=== PATIENT | male | born 1960 | race Caucasian/White ===

== ENCOUNTER 2018-09-22 15:15 | Emergency (ER) | payer MEDICARE, OTHER ==
[~2018-09-22] VITALS: Ht 182.9 cm; Wt 159.7 kg
[~2018-09-22 15:15] MED LIST: ADVIL200 MG PO; ATROVENT HFA12.9 GM INH; AZITHROMYCIN250 MG PO; FLEXERIL5 MG PO; FLOMAX0.4 MG PO; HYDROCODON-ACE1 EAC8 PO; IPRAT-ALBUT 0.5-3 ML IH; LISINOPRIL10 MG; MECLIZINE HCL25 MG PO; MULTI VITAMIN1 EACH PO; NYSTATIN500000 UNI PO; POTASSIUM CHLO10 MEQ PO; PREVACID30 MG PO; QVAR7.3 G1 IH; QVAR7.3 G1 INH; SEREVENT DISKU1 PUFF IH; SINGULAIR10 MG PO; SPIRIVA18 MCG IH; TESTOSTERO100 MG/1 M IM; TOPROL XL50 MG PO; VENTOLIN HFA18 GM IH; ZESTRIL10 MG PO
--- OUTSIDE RECORDS SUMMARY | 2018-09-22 15:18 | XMS ---
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 E.Linnette VISIT COUNT (12 MO.) 1 CHRISTINE Christine TOTAL 1 NOTE: Visits indicate total known visits. ED/UCC VISIT TRACKING (12 MO.) 09/22/2018 15:16 [facility] [place] TYPE: Emergency COMPLAINT: - TESTICULAR PAIN/NON INJURY INPATIENT VISIT TRACKING (12 MO.) No inpatient visits to display in this time frame [email or web address]
== END 2018-09-22 18:05 | disposition home or self-care (01) ==
LOC: ED 15:15
DX: R10.31 Right lower quadrant pain (principal); J45.909 Unspecified asthma, uncomplicated; Z87.891 Personal history of nicotine dependence; Z79.899 Other long term (current) drug therapy
CPT/HCPCS: 74177; 80053; 81001; 83690; 85025; 99284-25

== ENCOUNTER 2024-01-15 17:17 | Emergency (ER) | payer MEDICARE, OTHER ==
[~2024-01-15] VITALS: Ht 182.9 cm; Wt 177.7 kg
[~2024-01-15 17:17] MED LIST changes: +CARTIA XT240 MG PO; +CLARITIN10 M2 PO; +COLCRYS0.6 MG PO; +DOXYCYCLINE HY100 MG PO; +ELIQUIS5 MG PO; +FUROSEMIDE20 MG PO; +METHIMAZOLE10 MG PO; +METOPROLOL SUC200 MG PO; +MONTELUKAST SOD10 MG PO; +PREDNISONE20 MG PO; +TIZANIDINE HCL4 M1 PO; +XOLAIR75 MG/0.5
--- OUTSIDE RECORDS SUMMARY | 2024-01-15 17:24 | XMS ---
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 - 2 Visits in 30 Days CARE PROVIDERS ELVIN HOLT [facility] 06/29/2020-Current PHONE: Unknown ZEHRA MOTA Physician 09/24/2018-Current PHONE: Unknown Morris has no Care Guidelines for this patient. Oscar VISIT COUNT (12 MO.) [address] [place] [address] Altagracia Stevens) [address] [place] [address] TOTAL 4 NOTE: Visits indicate total known visits. ED/UCC VISIT TRACKING (12 MO.) [facility]15[facility]2024 17:[facility] COMPLAINT: - FOOT PAIN 01/12/2024 14:12 [facility] [place] [facility] (Rodney Stevens) TYPE: Emergency DIAGNOSES: - Cellulitis of right lower limb - follow up for right foot - Wound Check 01/10/2024 16:47 [facility] [place] (Rodney Stevens) TYPE: Emergency DIAGNOSES: - Cellulitis of right lower limb - Contusion of right foot, initial encounter - custodial (current) use of anticoagulants - Foot Wound - rt foot swelling 12/01/2023 20:12 [facility] [place] [facility] (Rodney Stevens) TYPE: Emergency DIAGNOSES: - Acute and chronic respiratory failure with hypoxia - Acute combined systolic (congestive) and diastolic (congestive) heart failure - Acute pulmonary edema - Body mass index [BMI] 50.0-59.9, adult - Emphysema, unspecified - Fluid overload, unspecified - Morbid (severe) obesity due to excess calories - Leg Swelling - Shortness of Breath - SOB and leg swelling INPATIENT VISIT TRACKING (12 MO.) [facility]23 [facility] DIAGNOSES: - Acute and chronic respiratory failure with hypoxia - Acute combined systolic (congestive) and diastolic (congestive) heart failure - Acute on chronic diastolic (congestive) heart failure - Acute on chronic right heart failure - Acute pulmonary edema - Body mass index [BMI] 50.0-59.9, adult - Emphysema, unspecified - Fluid overload, unspecified - Morbid (severe) obesity due to excess calories - Pneumonia, unspecified organism [email or web address]
[2024-01-15] MEDS ORDERED: TRELEGY ELLIPT1 EACH IH (17:54)
[2024-01-15] MEDS ORDERED: CEPHALEXIN500 MG PO (17:54)
[2024-01-15] MEDS ORDERED: ALLOPURINOL300 MG PO (17:56)
[2024-01-15] MEDS ORDERED: VANCOMYCIN PER PHARMACY PROTOCOL IV ONE (18:00)
[2024-01-15] MEDS ORDERED: CEFTRIAXONE/SODIUM CHLORIDE 1 GM/100 ML PIGGYBACK IV ONE (18:00)
[2024-01-15] MEDS ORDERED: DIPHTH,PERTUSS(ACELL),TET VAC 0.5 ML SYRINGE IM ONE (18:15)
[2024-01-15 18:20] LABS: HEMATOCRIT 51.1 % (35.0-50.0)
[2024-01-15 18:23] LABS: BASOPHILS 0.2 % (0-2); EOSINOPHILS 2.2 % (0-6); HEMOGLOBIN 16.3 g/dL (12.0-18.0); LYMPHOCYTES 9.3 % (24-44); MCH 27.8 (27-36); MCHC 31.8 g/dl (30-36); MCV 87.4 fl (81-99); MONOCYTES 13.5 % (0-12); NEUTROPHILS 74.8 % (39-80); PLATELET COUNT 283 K/uL (140-440); RBC 5.85 M/ul (4.3-5.7)
[2024-01-15 18:36] LABS: ALBUMIN 2.9 g/dL (3.4-5.0); ALBUMIN/GLOBULIN RATIO 0.69 (1.1-2.4); ANION GAP 6.4 (7-21); BILIRUBIN, TOTAL 0.4 ng/dL (0.2-1.0); BUN/CREATININE RATIO 16.41 (6.0-28.6); CREATININE, SERUM 1.34 mg/dL (0.70-1.30); POTASSIUM 4.4 mmol/L (3.5-5.1); PROTEIN, TOTAL 7.1 g/dL (6.4-8.2)
[2024-01-15 18:39] LABS: LACTIC ACID, BLOOD 1.1 mmol/L (0.4-2.0)
[2024-01-15] MEDS ORDERED: VANCOMYCIN HCL 3,000 MG in DEXTROSE 5% 500 ML IV ONE (18:45)
[2024-01-15] MEDS ORDERED: BACTRIM DS TAB1 EACH PO (19:25)
[2024-01-15 22:04] VITALS: BP 114/66
[2024-01-27] MEDS ORDERED: ATORVASTATIN CA10 MG PO (12:22)
[2024-01-27] MEDS ORDERED: LOSARTAN POTASS25 MG PO (12:22)
[2024-01-27] MEDS ORDERED: PREDNISONE20 MG PO (16:44)
== END 2024-01-15 22:04 | disposition home or self-care (01) ==
LOC: ED 17:17
PROVIDERS: Emergency Medicine
DX: L03.115 Cellulitis of right lower limb (principal); M71.21 Synovial cyst of popliteal space [Baker], right knee; E11.22 Type 2 diabetes mellitus with diabetic chronic kidney disease; N18.9 Chronic kidney disease, unspecified; E11.40 Type 2 diabetes mellitus with diabetic neuropathy, unspecified; J43.9 Emphysema, unspecified; I48.91 Unspecified atrial fibrillation; E03.9 Hypothyroidism, unspecified; E66.9 Obesity, unspecified; Z23 Encounter for immunization; Z68.43 Body mass index [BMI] 50.0-59.9, adult; Z99.81 Dependence on supplemental oxygen; Z87.891 Personal history of nicotine dependence; Z88.8 Allergy status to other drugs, medicaments and biological substances; Z79.01 Long term (current) use of anticoagulants; Z79.899 Other long term (current) drug therapy
CPT/HCPCS: 36415; 80053; 83605; 85025; 85379; 90471; 90715; 93971; 96365; 96375; 99284-25; J0696; J3370; J7060